=== PATIENT | female | born 1995 | race Caucasian/White ===

== ENCOUNTER 2017-05-07 13:07 | Emergency (ER) | payer OTHER ==
[~2017-05-07] VITALS: Ht 165.1 cm; Wt 74.8 kg
[2017-05-07 13:15] VITALS: BP_SYST 121
[2017-05-07] MEDS ORDERED: ALPRAZolam 0.25 MG TABLET PO ONE (13:45)
[2017-05-07] MEDS ORDERED: ALBUTEROL SULFATE 0.083% 2.5 MG/3 ML VIAL.NEB INH ONE (13:45)
[2017-05-07 14:59] VITALS: BP_SYST 130
== END 2017-05-07 14:17 | disposition home or self-care (01) ==
LOC: SED 13:07
DX: F41.8 Other specified anxiety disorders (principal); R03.0 Elevated blood-pressure reading, without diagnosis of hypertension; Z90.89 Acquired absence of other organs
CPT/HCPCS: 99284